=== PATIENT | female | born 1970 | race African-American/Black ===

== ENCOUNTER → 2017-05-23 | Outpatient (CLI) | payer BC ==
[2014-11-25 15:52] VITALS: BP 105/58
--- NOTE | 2017-05-23 17:32 | KCIC ---
Bilateral digital screening mammograms: Reason for examination: Routine screening. Comparison is made to previous studies dated 04/08/2016 and 03/19/2015. The skin and nipples show no abnormalities. No abnormal axillary lymph nodes are seen. The breast parenchyma is extremely dense. (Breast density: Category D.) There are no dominant masses, suspicious calcifications or architectural distortion. Impression: No evidence of malignancy. Recommend routine screening. Your patient's mammogram demonstrates that she has dense breast tissue (breast density category C or D), which could hide abnormalities, and if she has other risk factors for breast cancer that have been identified, she might benefit from supplemental screening tests that may be suggested by you as her ordering physician. Dense breast tissue, in and of itself, is a relatively common condition. Therefore, this information is not provided to cause undue concern, but rather to raise your awareness and to promote discussion with your patient regarding the presence of other risk factors, in addition to dense breast tissue. Your patient's mammography results will be sent to her. BI-RAD Category 1: Negative. "Our facility is accredited by the [employer] Mammography [employer]." This patient's information has been entered into a reminder system for the patient to be notified with the results of her examination and a target date for the next mammogram. Electronically signed by: Mary Montero MD (05/23/2017 5:29 PM) [facility]
== END | disposition home or self-care (01) ==
LOC: KCIC MAMMO 13:57
PROVIDERS: ATTEND Family Medicine
DX: Z12.31 Encounter for screening mammogram for malignant neoplasm of breast (principal)
CPT/HCPCS: G0202; 77067

== ENCOUNTER → 2017-08-09 | Outpatient (CLI) | payer BC ==
[2014-11-25 15:52] VITALS: BP 105/58
--- NOTE | 2017-08-09 13:31 | KCIC ---
Bilateral breast ultrasound. History: 46-year-old female presents for bilateral breast ultrasound, given extremely dense breast tissue seen on recent screening mammography from May. Comparison: None, correlation with mammogram dated May 23, 2017 Findings: Sonography of both breasts is performed, with radial and antiradial images obtained of all 4 quadrants and bilateral axillae. No suspicious solid or cystic mass is seen. Dense fibroglandular tissue is seen throughout. Normal tissue planes are maintained. No suspicious lymphadenopathy is seen within the provided images. Impression: Negative bilateral breast ultrasound. Recommend return to annual screening mammography cycle, with target due date of May 23, 2018. Findings and recommendation were relayed to the patient by the technologist. BI-RADS Category 1: Negative. Electronically signed by: Gracie Marmolejo MD (08/09/2017 1:28 PM) [facility]
== END | disposition home or self-care (01) ==
LOC: KCIC US 12:50
DX: R92.2 Inconclusive mammogram (principal)
CPT/HCPCS: 76641

== ENCOUNTER 2018-08-18 08:13 | Emergency (ER) | payer BC ==
[~2018-08-18] VITALS: Ht 162.6 cm; Wt 60.8 kg
[2018-08-18] MEDS ORDERED: IV NORMAL SALINE 1000ML BAG 1,000 ML IV ONE ×2 (08:30→09:30)
[2018-08-18] MEDS ORDERED: ONDANSETRON PF 4 MG/2 ML VIAL. IV ONE (08:30)
[2018-08-18] MEDS ORDERED: IPRATRPIUM/ALBUTEROL 0.5/2.5MG 3 ML NEBU. NEB ONE (08:45)
--- NOTE | 2018-08-18 08:53 | PHYS DOC ---
Past Medical History Past Medical History: No Pertinent History Past Surgical History: Other Additional Past Surgical Histo: fibroids Alcohol Use: None Drug Use: None Adult General Chief Complaint Chief Complaint: WEAKNESS/GENERALIZED HPI HPI Patient is a 47 year old female who presents with saw her primary care Dr Parks on Monday and was diagnosed with Bronchitis and was given a z pack. Patient had a allergic reaction to the z pack and the antibiotic was changed. Patient states she never picked up the new antibiotic. alert and oriented. Review of Systems Review of Systems Constitutional: Fever or chills [] Eyes: Denies change in visual acuity, redness, or eye pain [] HENT: nasal congestion and sore throat [] Respiratory: cough and shortness of breath [] Cardiovascular: Chest pain with cough GI: Denies abdominal pain, nausea, Denies vomiting, bloody stools or diarrhea [] : Denies dysuria or hematuria [] Musculoskeletal: Body aches. Denies back pain or joint pain [] Integument: Denies rash or skin lesions [] Neurologic: Denies headache, focal weakness or sensory changes [] Endocrine: Denies polyuria or polydipsia [] All other systems were reviewed and found to be within normal limits, except as documented in this note. Current Medications Current Medications Current Medications Medications (Trade) Dose Ordered Sig/Blessing Start Time Stop Time Status Last Admin Dose Admin Albuterol/ Ipratropium (Duoneb) 3 ml 1X ONCE 08/18/18 08:45 08/18/18 08:46 DC 08/18/18 08:59 3 ML Ondansetron HCl (Zofran) 4 mg 1X ONCE 08/18/18 08:30 08/18/18 08:36 DC 08/18/18 09:07 4 MG Prednisone (Prednisone) 50 mg 1X ONCE 08/18/18 09:30 08/18/18 09:31 DC 08/18/18 09:45 50 MG Sodium Chloride 1,000 ml @ 1,000 mls/hr 1X ONCE 08/18/18 09:30 08/18/18 10:29 08/18/18 09:46 1,000 MLS/HR Allergies Allergies Allergies Coded Allergies Type Severity Reaction Last Updated Verified azithromycin Allergy Intermediate HIVES 08/18/18 Yes Physical Exam Physical Exam Constitutional: Well developed, well nourished, no acute distress, non-toxic appearance. [] HENT: Normocephalic, atraumatic, bilateral external ears normal, oropharynx moist, no oral exudates, nose normal. [] Eyes: PERRLA, EOMI, conjunctiva normal, no discharge. [] Neck: Normal range of motion, no tenderness, supple, no stridor. [] Cardiovascular: Tachycardia. Heart rate regular rhythm, no murmur [] Lungs & Thorax: Per her bilateral lung lobes are clear bilateral lung lobes are diminished Abdomen: Bowel sounds normal, soft, no tenderness, no masses, no pulsatile masses. [] Skin: Warm, dry, no erythema, no rash. [] Back: No tenderness, no CVA tenderness. [] Extremities: No tenderness, no cyanosis, no clubbing, ROM intact, no edema. [] Neurologic: Alert and oriented X 3, normal motor function, normal sensory function, no focal deficits noted. [] Psychologic: Affect normal, judgement normal, mood normal. [] Current Patient Data Vital Signs Vital Signs Date Time Temp Pulse Resp B/P (MAP) Pulse Ox O2 Delivery O2 Flow Rate FiO2 08/18/18 09:46 108 18 100 08/18/18 09:00 Room Air 08/18/18 08:17 101.9 111/65 (80) 101.9 Lab Values Laboratory Tests Test 08/18/18 08:45 08/18/18 09:39 White Blood Count 11.2 x10^3/uL (4.0-11.0) H Red Blood Count 4.32 x10^6/uL (3.50-5.40) Hemoglobin 12.7 g/dL (12.0-15.5) Hematocrit 37.0 % (36.0-47.0) Mean Corpuscular Volume 86 fL (79-100) Mean Corpuscular Hemoglobin 29 pg (25-35) Mean Corpuscular Hemoglobin Concent 34 g/dL (31-37) Red Cell Distribution Width 13.7 % (11.5-14.5) Platelet Count 344 x10^3/uL (140-400) Neutrophils (%) (Auto) 85 % (31-73) H Lymphocytes (%) (Auto) 13 % (24-48) L Monocytes (%) (Auto) 2 % (0-9) Eosinophils (%) (Auto) 0 % (0-3) Basophils (%) (Auto) 0 % (0-3) Neutrophils # (Auto) 9.5 x10^3uL (1.8-7.7) H Lymphocytes # (Auto) 1.4 x10^3/uL (1.0-4.8) Monocytes # (Auto) 0.2 x10^3/uL (0.0-1.1) Eosinophils # (Auto) 0.0 x10^3/uL (0.0-0.7) Basophils # (Auto) 0.0 x10^3/uL (0.0-0.2) Platelet Estimate Pending Sodium Level 136 mmol/L (136-145) Potassium Level 3.6 mmol/L (3.5-5.1) Chloride Level 100 mmol/L (98-107) Carbon Dioxide Level 26 mmol/L (21-32) Anion Gap 10 (6-14) Blood Urea Nitrogen 12 mg/dL (7-20) Creatinine 0.8 mg/dL (0.6-1.0) Estimated GFR (Cockcroft-Gault) 93.9 Glucose Level 110 mg/dL (70-99) H Calcium Level 9.1 mg/dL (8.5-10.1) Influenza Type A Antigen Negative (NEGATIVE) Influenza Type B Antigen Negative (NEGATIVE) Urine Collection Type Unknown Urine Color Aminata Urine Clarity Clear Urine pH 6.0 Urine Specific [place] 1.020 Urine Protein Negative mg/dL (NEG-TRACE) Urine Glucose (UA) Negative mg/dL (NEG) Urine Ketones (Stick) >=80 mg/dL (NEG) Urine Blood Moderate (NEG) Urine Nitrite Negative (NEG) Urine Bilirubin Negative (NEG) Urine Urobilinogen Dipstick 1.0 mg/dL (0.2 mg/dL) Urine Leukocyte Esterase Trace (NEG) Urine RBC 1-2 /HPF (0-2) Urine WBC Occ /HPF (0-4) Urine Squamous Epithelial Cells Few /LPF Urine Bacteria Few /HPF (0-FEW) Urine Mucus Mod /LPF Laboratory Tests 08/18/18 08:45 Laboratory Tests 08/18/18 08:45 EKG EKG Tachycardia and no STEMI Interpretation Time: [address] Tamez Radiology/Procedures Radiology/Procedures Chest x-ray Impressions: [facility] [address] [place] [address] IMAGING REPORT Signed PATIENT: NOVA CISSE ACCOUNT: [id number] : 1970 LOCATION: ER AGE: 47 SEX: F EXAM STATUS: REG ER ORD. PHYSICIAN: JASON LEIJA APRN REASON: cough, soa, fever PROCEDURE: CHEST PA & LATERAL Chest, PA and Lateral: Technique: PA and lateral views of the chest were obtained. History: Cough, shortness of breath. Comparison: None. Findings: The heart and pulmonary vasculature appear within normal limits. The lungs are clear. The pleural margins are clear. Impression: No acute chest process is seen. Electronically signed by: Fawad Prieto MD (08/18/2018 9:05 AM) [facility] DICTATED and SIGNED BY: FAWAD PRIETO MD DATE: 08/18/18903 Course & Med Decision Making Course & Med Decision Making Patient is a 47 year old female who presents with saw her primary care Dr Parks on Monday and was diagnosed with Bronchitis and was given a z pack. Patient had a allergic reaction to the z pack and the antibiotic was changed. Patient states she never picked up the new antibiotic. alert and oriented. Skin pink warm and dry. Patient states that she has body aches, cough and fever. Patient states she has shortness of air with exertion and has sharp chest pains that come and go. He states that her throat hurts in her chest hurts when she coughs. Patient states she's nausea but has not vomited or had diarrhea. Patient states she is not taking anything yet this morning. She is tachycardic at 121, 111/66, 99% on room air, 101.9. Patient rates her pain an 8 out of 10. She states that she has not been drinking a lot of fluids or eating. Abdomen is soft and nontender. Patient has no extremity swelling. Patient states she has no daily medications or past medical history. Chest xray shows no acute findings. Negative flu. Blood work unremarkable. Urinare is not infected. Patient has received 2L of NS in the ED. qSOFA is negative for this patient, as she does not meet criteria. [] Dragon Disclaimer Dragon Disclaimer This electronic medical record was generated, in whole or in part, using a voice recognition dictation system. Departure Departure Impression: Primary Impression: Upper respiratory infection Disposition: 01 HOME, SELF-CARE Condition: STABLE Referrals: MIRNA CHAPA MD (PCP) Patient Instructions: Upper Respiratory Infection, Adult Additional Instructions: Take the antibiotic that your doctor prescribed for you. Continue taking over the counter medications. Problem Qualifiers Primary Impression: Upper respiratory infection URI type: unspecified URI Qualified Codes: J06.9 - Acute upper respiratory infection, unspecified JASON LEIJA TONGUE TRIMMER Aug 18, 2018 08:53
[2018-08-18 09:01] LABS: BASO % 0 % (0-3); EOS % 0 % (0-3); HEMOGLOBIN 12.7 g/dL (12.0-15.5); LYMPH # 1.4 x10^3/uL (1.0-4.8); LYMPH % 13 % (24-48); MEAN CORPUSCULAR HEMOGLOBIN 29 pg (25-35); MEAN CORPUSCULAR HGB CONC 34 g/dL (31-37); MEAN CORPUSCULAR VOLUME 86 fL (79-100); MONO # 0.2 x10^3/uL (0.0-1.1); MONO % 2 % (0-9); NEUT # 9.5 x10^3uL (1.8-7.7); NEUT % 85 % (31-73); PLATELET COUNT 344 x10^3/uL (140-400); RED BLOOD COUNT 4.32 x10^6/uL (3.50-5.40); RED CELL DISTRIBUTION WIDTH 13.7 % (11.5-14.5); WHITE BLOOD COUNT 11.2 x10^3/uL (4.0-11.0)
[2018-08-18 09:08] LABS: CALCIUM 9.1 mg/dL (8.5-10.1); CREATININE 0.8 mg/dL (0.6-1.0); GFR 93.9; POTASSIUM 3.6 mmol/L (3.5-5.1)
--- NOTE | 2018-08-18 09:09 | RAD ---
Chest, PA and Lateral: Technique: PA and lateral views of the chest were obtained. History: Cough, shortness of breath. Comparison: None. Findings: The heart and pulmonary vasculature appear within normal limits. The lungs are clear. The pleural margins are clear. Impression: No acute chest process is seen. Electronically signed by: Fawad Prieto MD (08/18/2018 9:05 AM) [facility]
[2018-08-18 09:19] LABS: INFLUENZA A PATIENT NEGATIVE (NEGATIVE); INFLUENZA B PATIENT NEGATIVE (NEGATIVE)
[2018-08-18] MEDS ORDERED: predniSONE 10 MG TABLET PO ONE (09:30)
[2018-08-18 09:46] VITALS: BP 97/69
[2018-08-18 09:49] LABS: BILIRUBIN,URINE NEGATIVE (NEG); CLARITY,URINE CLEAR; COLOR,URINE AMBER; NITRITE,URINE NEGATIVE (NEG); PROTEIN,URINE NEGATIVE (NEG-TRACE)
[2018-08-18 10:00] LABS: BACTERIA,URINE FEW /HPF (0-FEW); SQUAMOUS EPITHELIAL CELL,UR FEW /LPF; WBC,URINE OCC /HPF (0-4)
[2018-08-18 11:11] LABS: % BANDS 5 % (0-9); % LYMPHS 16 % (24-48); % MONOS 2 % (0-10); % SEGS 77 % (35-66); PLT ESTIMATE ADEQUATE (ADEQUATE)
--- NOTE | 2018-08-19 08:18 | EKG ---
[facility] [address] [place] [address] Test Date: 2018-08-18 Test Time: 08:32:55 Pat Name: NOVA CISSE Department: Room: Gender: Female Pricing Clerk: : 1970 Requested By: JASON LEIJA Order Number: [id number] Reading MD: Trey Celestin Measurements Intervals [place] Rate: 107 P: 61 CO: 140 QRS: 91 QRSD: 72 T: 30 QT: 300 QTc: 400 Interpretive Statements SINUS TACHYCARDIA LEFT ATRIAL ABNORMALITY RIGHTWARD AXIS QRS(T) CONTOUR ABNORMALITY CONSIDER ANTEROLATERAL MYOCARDIAL DAMAGE ABNORMAL ECG Electronically Signed On 08-20-2018 8:53:37 PHARMACY BILLING ADJUDICATOR by Trey Celestin
== END 2018-08-18 10:56 | disposition home or self-care (01) ==
LOC: ER 08:13
DX: J06.9 Acute upper respiratory infection, unspecified (principal); R00.0 Tachycardia, unspecified; M79.18 Myalgia, other site; Z88.1 Allergy status to other antibiotic agents
CPT/HCPCS: 36415; 71046; 80048; 81001; 85007; 85025; 87086; 87804; 93005; 94640; 96374; 99284; J2405; J7030; J7512; J7620; 96361